=== PATIENT | male | born 1985 | race Caucasian/White ===

== ENCOUNTER → 2017-12-06 | Outpatient (REF) | payer OTHER | LOC: M SFHCLERA 10:58 | DX: R11.0 Nausea (principal) ==

== ENCOUNTER → 2020-10-17 | Outpatient (REF) | payer OTHER, SELFPAY | LOC: M LAB REF 17:01 | PROVIDERS: ATTEND Physician Assistant | DX: D23.5 Other benign neoplasm of skin of trunk (principal); D23.30 Other benign neoplasm of skin of unspecified part of face; D23.4 Other benign neoplasm of skin of scalp and neck ==

== ENCOUNTER → 2021-04-15 | Outpatient (REF) | payer OTHER | LOC: M LAB REF 14:02 | PROVIDERS: ATTEND Physician Assistant | DX: D23.4 Other benign neoplasm of skin of scalp and neck (principal); D22.9 Melanocytic nevi, unspecified ==

== ENCOUNTER → 2021-05-23 | Outpatient (CLI) | payer OTHER ==
--- NOTE | 2021-05-23 09:07 | REP ---
INDICATION: PAIN. COMPARISON: None. TECHNIQUE: AP, lateral, sunrise and tunnel views of the left knee FINDINGS: Osseous structures, joint spaces, and surrounding soft tissues are age-appropriate and within normal limits. No evidence for acute or healed injury. No overt osteoarthritic or inflammatory arthritic changes are appreciated. No effusion. IMPRESSION: Normal age-appropriate left knee radiographs. <Electronically signed by Himanshu Panchal > 05/23/21 0904
== END ==
LOC: M SOG 08:28
PROVIDERS: ATTEND Orthopaedic Surgery Sports Medicine
DX: M25.562 Pain in left knee (principal)

== ENCOUNTER 2021-06-11 07:43 | Outpatient (RCR) | payer OTHER | END 2021-06-14 | LOC: M PT 07:43 | PROVIDERS: ATTEND Orthopaedic Surgery Sports Medicine | DX: S83.242A Other tear of medial meniscus, current injury, left knee, initial encounter (principal) ==

== ENCOUNTER → 2021-06-17 | Outpatient (CLI) | payer OTHER | LOC: M PLAIMG 12:33 | PROVIDERS: ATTEND Orthopaedic Surgery Sports Medicine | DX: S83.242A Other tear of medial meniscus, current injury, left knee, initial encounter (principal); W18.30XA Fall on same level, unspecified, initial encounter; Y92.009 Unspecified place in unspecified non-institutional (private) residence as the place of occurrence of the external cause ==

== ENCOUNTER 2021-07-09 07:25 | Outpatient (RCR) | payer OTHER | END 2021-07-15 | LOC: M PT 07:25 | PROVIDERS: ATTEND Orthopaedic Surgery Sports Medicine | DX: S83.242A Other tear of medial meniscus, current injury, left knee, initial encounter (principal) ==

== ENCOUNTER → 2021-10-15 | Outpatient (REF) | payer OTHER | LOC: M LAB REF 14:28 | PROVIDERS: ATTEND Nurse Practitioner Family | DX: D22.5 Melanocytic nevi of trunk (principal) ==

== ENCOUNTER → 2023-06-29 | Outpatient (REF) | payer OTHER | LOC: M SFHCDERM 14:47 | PROVIDERS: ATTEND Physician Assistant | DX: I78.1 Nevus, non-neoplastic (principal) ==

== ENCOUNTER 2023-12-11 14:36 | Emergency (ER) | payer OTHER, BC ==
[~2023-12-11] VITALS: Ht 170.2 cm; Wt 82.3 kg
[2023-12-11] MEDS ORDERED: SERT50TA29 (14:49)
[2023-12-11] MEDS ORDERED: PRAZ1CAP (14:49)
[2023-12-11] MEDS ORDERED: IBUPROFEN 800 MG TAB PO ONE (16:15)
[2023-12-11 18:35] VITALS: BP 152/85; TEMP 98.1; O2SAT 100
== END 2023-12-11 18:39 | disposition home or self-care (01) ==
LOC: M ED 14:36
DX: S62.352A Nondisplaced fracture of shaft of third metacarpal bone, right hand, initial encounter for closed fracture (principal); X58.XXXA Exposure to other specified factors, initial encounter; Y92.149 Unspecified place in prison as the place of occurrence of the external cause; Y93.89 Activity, other specified; Y99.0 Civilian activity done for income or pay

== ENCOUNTER → 2023-12-24 | Outpatient (CLI) | payer OTHER, BC ==
[~2023-12-24] MED LIST: PRAZ1CAP; SERT50TA29
== END ==
LOC: M SOG 08:01
PROVIDERS: ATTEND Physician Assistant
DX: S62.302A Unspecified fracture of third metacarpal bone, right hand, initial encounter for closed fracture (principal); W18.30XA Fall on same level, unspecified, initial encounter; Y92.009 Unspecified place in unspecified non-institutional (private) residence as the place of occurrence of the external cause

== ENCOUNTER → 2024-01-21 | Outpatient (CLI) | payer OTHER, BC | LOC: M SOG 07:55 | PROVIDERS: ATTEND Physician Assistant | DX: S62.302D Unspecified fracture of third metacarpal bone, right hand, subsequent encounter for fracture with routine healing (principal) ==

== ENCOUNTER → 2024-02-10 | Outpatient (CLI) | payer OTHER, BC | LOC: M SOG 12:50 | PROVIDERS: ATTEND Physician Assistant | DX: M25.641 Stiffness of right hand, not elsewhere classified (principal) ==

== ENCOUNTER → 2024-02-11 | Outpatient (CLI) | payer OTHER, BC | LOC: M SOG 07:57 | PROVIDERS: ATTEND Physician Assistant | DX: M25.641 Stiffness of right hand, not elsewhere classified (principal) ==

== ENCOUNTER → 2024-10-30 | Outpatient (REF) | payer OTHER, BC | LOC: M SFHCDERM 17:47 | PROVIDERS: ATTEND Physician Assistant | DX: D22.5 Melanocytic nevi of trunk (principal); D22.62 Melanocytic nevi of left upper limb, including shoulder ==

== ENCOUNTER → 2025-07-30 | Outpatient (REF) | payer OTHER, BC | LOC: M SFHCDERM 17:53 | PROVIDERS: ATTEND Physician Assistant | DX: D48.5 Neoplasm of uncertain behavior of skin (principal) ==